=== PATIENT | female | born 1995 | race Caucasian/White ===

== ENCOUNTER 2019-10-02 05:40 | Inpatient (IN) | payer BC ==
[2019-10-01 10:08] LABS: Absolute Lymphocytes (CBC) 1.7 K/uL (0.7-4.9); Basophils % 0.3 % (0-1.3); Lymphocytes % 21.1 % (15.3-44.8); MPV 9.5 fL (7.6-11.3); RBC Red Blood Cell Count 3.53 M/uL (3.86-4.86)
[2019-10-01 10:25] LABS: Urine Appearance CLEAR; Urine Bilirubin NEGATIVE (NEG); Urine Blood NEGATIVE (NEG); Urine Color YELLOW; Urine Glucose NEGATIVE (NEG); Urine Protein NEGATIVE (NEG); Urine Specific Gravity 1.015 (1.005-1.030); Urine pH 6.5 (5.0-7.0)
[2019-10-01 10:27] LABS: Urine Microscopic Reflex ORDER UMIC
[2019-10-01 10:44] LABS: Urine Bacteria >50 /HPF (<20); Urine Culture Reflex Order REFLEXED; Urine RBC <5 /HPF (NONE SEEN)
[2019-10-01 10:50] LABS: Urine White Blood Cell Casts OK
[2019-10-01 10:51] LABS: Blood Morphology Comment NOT SEEN (NOT SEEN); Platelet Estimate ADEQ
--- NOTE | 2019-10-01 14:55 | PREOPHP ---
Date of Admission: 10/02/2019 Ms. Workman is a 24-year-old female, 4, para 2-0-1-2, now at 39+ weeks gestation. She will be admitted for repeat section. Her has been active. She has had few contract ions. Past Medical History: Please see record. Family History: Please see record. Review of Systems: She reports no recent cough, cold, fever, or chills. No recent nausea or vomiting. No breast knots or lumps. No bowel or bladder issues. Physical Examination: General: female, in no apparent distress. Neck: Supple without adenopathy or thyromegaly. Lungs: Clear. Cardiac: Regular rate and rhythm without murmurs. Breasts: Not examined. Abdomen: Estimated weight of 8 pounds. Pelvic: Cervix less than fingertip, 30% effaced, vertex at -1 to -2 station. Extremities: No cyanosis, clubbing, or edema. Plan: The patient prefers a repeat section. She suffered a pelvic floor injury with first delivery with macrosomia, delivered a second by primary section and wishes to undergo repeat section. Risks are discussed. She has signed operative permit in my presence. NOBLE/JACOBY Voice ID: [id number]
[2019-10-01 21:13] LABS: RPR (Rapid Plasma Reagin) NON-REACT (NON-REACT)
[2019-10-02] MEDS ORDERED: Ringers Lactate 1,000 ML IV PRN (06:14)
[2019-10-02] MEDS ORDERED: NA CIT/CITRIC AC 30 ML ORAL UDC PO ONE (06:17)
[2019-10-02] MEDS ORDERED: FAMOTIDINE 20 MG/2 ML VIAL IV ONE (06:18)
[2019-10-02 06:38] VITALS: BMI 30.7
[2019-10-02] MEDS ORDERED: EPHEDRINE SULF 50 MG/ML VIAL ONE (06:59)
[2019-10-02] MEDS ORDERED: MORPHINE SULFATE/PF 1 MG/ML (10 ML AMP) ONE (06:59)
[2019-10-02] MEDS ORDERED: METOCLOPRAMIDE 10 MG/2mL INJ IV SCH (07:00)
[2019-10-02] MEDS ORDERED: Phenylephrine HCl 10 MG/ML 1 ML VIAL ONE (07:00)
[2019-10-02] MEDS ORDERED: FENTANYL CITR 250 MCG/5 ML ONE (07:00)
[2019-10-02] MEDS ORDERED: CEFAZOLIN 2 GM in NA CHLORIDE 0.9% 100 ML IVPB SCH (07:00)
[2019-10-02] MEDS ORDERED: Ringers Lactate 1,000 ML IV SCH (07:00)
[2019-10-02] MEDS ORDERED: NS 0.9% VIAL 20 ML ONE (07:00)
[2019-10-02] MEDS ORDERED: OXYTOCIN 10 UNIT/ML ML IV ONE (07:00)
[2019-10-02] MEDS ORDERED: BUPIVACAINE 0.75% (PF) 2 ML SP ONE (07:01)
[2019-10-02] MEDS ORDERED: LIDOCAINE 2% MPF 5 ML VIAL ONE (07:10)
[2019-10-02] MEDS ORDERED: DIPHENHYDRAMINE 50 MG/ML VIAL ONE (08:16)
[2019-10-02] MEDS ORDERED: CARBOPROST TROME 250 MCG/ML IM PRN (08:46)
[2019-10-02] MEDS ORDERED: METHYLERGONOVINE 0.2 MG TAB PO PRN (08:46)
[2019-10-02] MEDS ORDERED: Oxycodone HCl/Acetaminophen 1 TAB TAB PO PRN (08:46)
[2019-10-02] MEDS ORDERED: ONDANSETRON 4 MG (ODT) TAB PO PRN (08:46)
[2019-10-02] MEDS ORDERED: METHYLERGONOVINE 0.2MG/ML AMP IM PRN (08:46)
[2019-10-02] MEDS ORDERED: OXYTOCIN/LR 20 UNIT/1,000 ML BAG IV SCH (09:00)
[2019-10-02] MEDS: KETOROLAC 30 MG/ML INJ IV PRN ×2 (10:50→18:00)
[2019-10-02] MEDS: Oxycodone HCl/Acetaminophen 1 TAB TAB PO PRN ×2 (14:40→20:40)
--- NOTE | 2019-10-02 17:23 | P.PN ---
Date of Service: 10/02/19 Post Op No complaints, bandage dry, abdomen soft, urine clear, bleeding small amts. Plan for tomorrow discussed.
[2019-10-02] MEDS ORDERED: Ringers Lactate 1,000 ML IV ONE (18:29)
[2019-10-03] MEDS: Oxycodone HCl/Acetaminophen 1 TAB TAB PO PRN ×5 (00:41→23:22)
[2019-10-03 06:13] LABS: Absolute Lymphocytes (CBC) 1.9 K/uL (0.7-4.9); Basophils % 0.3 % (0-1.3); Hematocrit 25.8 % (36.0-45.0); MPV 10.1 fL (7.6-11.3); RBC Red Blood Cell Count 3.01 M/uL (3.86-4.86)
[2019-10-03] MEDS: KETOROLAC 30 MG/ML INJ IV PRN (07:21)
--- NOTE | 2019-10-03 07:32 | P.PN ---
Date of Service: 10/03/19 POD#1 S-No complaints O-Afeb, vs stable, hct down from 30 to 25, bandage dry, abdomen soft A-Satisfactory P-Advance diet, dc syed and IV, ambulate.
--- NOTE | 2019-10-03 08:51 | OP ---
Surgeon: Cem Woodward MD Financial Reporting Director: Dr. Acevedo. Anesthesiologist: Dr. Hoffmann and nurse CAREER CENTER DIRECTOR. Preoperative Diagnosis: 39+ week , prior section, requested repeat sectio n. Procedure: Spinal block anesthesia, repeat section, delivery of viable female . Postoperative Diagnosis: 39+ week , prior section, requested repeat secti on. Description Of Procedure: After satisfactory level of spinal block anesthesia was obtained and the p atient received 2 g of Ancef for antibiotic prophylaxis, she was prepped and draped in the usual [facility] ion for abdominal surgery. A Pfannenstiel skin incision was made and carried down to the fascia. Fa scia was incised with a combination of sharp and blunt dissection. This was from the under lying rectus muscles. These were divided in the midline. The peritoneum entered and a vesicouterine incision was made. Bladder flap developed bluntly and lower uterine segment incision was made. 8-p ound 2-ounce female infant, 8 and 9 was delivered in vertex presentation. The cord was clamped , cut, and the infant placed in a warmer. Cord blood was obtained. Placenta was manually removed. The uterus was then exteriorized. The cervix was dilated from above with a ring clamp which was pass ed from the operative field. The uterus was closed in 2 layers utilizing 0 Vicryl suture in a runnin g fashion, second layer used to imbricate the first. A simple [id number] suture of 0 Vicryl was used in an area of bleeding in the left midportion of the uterus. Vesicouterine peritoneum/bladder flap was reapproximated with a running suture of 3-0 Vicryl. The uterus was returned to peritoneal c avity, which was cleaned of amniotic fluid, debris, and blood clot. The rectus muscles were approxim ated in the midline with simple sutures of 0 Vicryl. The fascia was closed with running sutures of # 1 Vicryl from either margin to the middle. The skin was closed with simple subcutaneous sutures with 3-0 Vicryl, a running subdermal suture of 3-0 Vicryl, and then a subcuticular suture of 4-0 Monocryl . Patient was taken to the recovery room in satisfactory condition with Zheng catheter in place, SCD s in place, and sponge and needle counts correct x2. Quantitative blood loss was measured at 588 mL. MPG/MODL Voice ID: [id number] Report ID: [id number]
[2019-10-04] MEDS: Oxycodone HCl/Acetaminophen 1 TAB TAB PO PRN ×2 (03:22→07:58)
[2019-10-04 07:02] VITALS: BP 123/70; TEMP 98.7
[2019-10-04 20:52] LABS: HBsAG Nonreactive (Nonreactive)
--- NOTE | 2019-10-05 01:37 | DS ---
Date of Discharge: 10/04/2019 Final Hospital Discharge Diagnosis: 39 plus week , delivered. Repeat section. Complications: Iron-deficiency anemia. Procedures: Spinal block anesthesia, repeat section, delivery of viable female . Hospital Course: The patient is a 24-year-old female, admitted for repeat section . She delivered an 8-pound 2-ounce female by repeat section with spinal block anesth esia. She was dismissed on the second day, ambulatory, on a select diet with routine post activity restrictions. Hospital course complicated by admission hemoglobin and hematocrit of 10.1 and 30.0 with the expected loss postoperatively to 8.7 and 25.8 hemoglobin and hematocrit. She was instructed to continue taking her iron and vitamins. She will be seen back in [place] in 1 week with the usual post vaginal delivery activity restrictions with prescription for Tylen ol No. 3, #15 for pain relief. She had a negative urinalysis. She is RPR nonreactive. Urine cultur e showed probable contaminated specimen with mixed may. NOBLE/TODL Voice ID: [id number] Report ID: [id number]
== END 2019-10-04 08:30 | disposition home or self-care (01) | DRG 788 ==
LOC: 2ND-WC 05:40
PROVIDERS: ADMIT Specialist; ATTEND Specialist
PROC: 10D00Z1 Extraction of Products of Conception, Low, Open Approach (ICD-10-PCS; principal; 2019-10-02 07:30)
DX: O80 Encounter for full-term uncomplicated delivery (principal); D50.9 Iron deficiency anemia, unspecified; Z3A.39 39 weeks gestation of pregnancy; Z37.0 Single live birth
CPT/HCPCS: 36415; 81003; 81015; 85025; 86592; 86850; 86900; 86901; 87086; 87088; 87340; 88307; J1200; J2370; J2590; J2765; J3010; J7120